=== PATIENT | male | born 2000 ===

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

== ENCOUNTER 2023-07-15 08:14 | Emergency (ER) | payer OTHER, SELFPAY ==
[2023-07-15 08:33] VITALS: BP 142/89; PULSE 77; RESP 16; TEMP 37.1; O2SAT 100; BMI 45.1
--- NOTE | 2023-07-15 09:05 | ED.URI ---
HPI - URI/Sore Throat General Chief Complaint: Upper Respiratory Symptoms Stated Complaint: Cough Chest Discomfort Time Seen by Provider: 07/15/23 09:04 Source: patient and educational interpreter Mode of arrival: ambulatory Limitations: language barrier History of Present Illness HPI Narrative: Patient is a 23-year-old English-speaking male presenting to emergency department with complaint of nonproductive cough, sore throat and fatigue for the past 2 days. Cough is nonproductive. He denies fevers. Reports bilateral rib pain during coughing episodes, denies any chest pain at rest. Denies ear pain. Has not taken any over the counter medications for his symptoms. MD elicited complaint: cough and sore throat Onset (ago): day(s) Consistency: intermittent Severity: moderate Able to tolerate fluids by mouth: Yes Treatments prior to arrival: none Related Data Home Medications Medication Instructions Recorded Confirmed No Known Home Meds 03/13/22 09/23/22 Allergies Allergy/AdvReac Type Severity Reaction Status Date / Time No Known Allergies Allergy Verified 09/23/22 16:00 Review of Systems Review of Systems: As per HPI. Yes all other systems are reviewed and are negative Constitutional: Constitutional: Reports as per HPI PMFSH Past Medical History Medical History Elevated alkaline phosphatase level Mild asthma Morbid obesity Physical exam Surgical History No pertinent past surgical history Family History Family History Mother Diabetes Arthritis Hypertension Rheumatoid arthritis Father No problems noted. Maternal Grandfather Cancer Social History Social History Housing: Apartment Alcohol intake: never Patient Tobacco Use Status: Never used Tobacco e-Cigarette/Vaping Use: Never Used Second Hand Smoke Exposure: No Advance Directives: No service: No Current occupational status: unemployed Current occupational exposures/hazards: No Cognitive needs: No Hearing needs: No Vision needs: No Physical Exam Vital Signs: Vital Signs: Last Vital Signs Temp 98.7 F 07/15/23 08:33 Pulse 77 07/15/23 08:33 Resp 16 07/15/23 08:33 BP 142/89 H 07/15/23 08:33 Pulse Ox 100 07/15/23 08:33 O2 Del Method Room Air 07/15/23 08:33 BMI result Body Mass Index 45.1 Vital signs have been reviewed and appear to be correct. Blood pressure elevated. Heart rate normal. Respiratory rate normal. Temperature normal. Oxygen saturation normal. Const: General: cooperative, healthy appearing and no acute distress Orientation/consciousness: oriented to person, oriented to place, oriented to time and patient oriented x3 Limitations: no limitations HEENT: Head: Yes normocephalic and Yes atraumatic Ears: external ears normal, TM's normal bilaterally and EAC's normal General nose exam: Normal external nose present and Normal nasal mucous membranes and turbinates present Face and sinus: Yes face symmetric Mouth: oropharynx normal and moist mucous membranes Throat: Yes uvula midline and Yes posterior oropharynx abnormal (mild erythema, no edema, no exudate) Eyes: Pupils: Equal, round and reactive pupils present Neck: Neck: Yes normal visual inspection and Yes supple Lymphatic: no lymphadenopathy noted Resp: Effort & Inspection: normal respiratory effort and able to speak in complete sentences Auscultation: clear to auscultation bilaterally, no rhonchi and no wheezes Cardio: Rate: regular rate Rhythm: regular rhythm Heart sounds: S1 normal heart sound present and S2 normal heart sound present GI: Palpation (GI): Soft to palpation and nontender Auscultation: normoactive bowel sounds : General: Yes no CVA tenderness Back/Spine/Pelvis: Back: no CVA tenderness Skin: General skin exam: elasticity normal and turgor normal Neuro: General: oriented to person, oriented to place, oriented to time, patient oriented x3, moves all extremities, no focal motor deficits and CN's II-XI intact bilaterally Cranial nerves: Yes Equal, round and reactive pupils present Cognition (Neuro): normal cognition Extrem: General: Yes full ROM, Yes no pedal edema and Yes no calf tenderness Psych: Mental Status: mental status grossly normal Affect: normal affect Thought process: Normal thought process present Medical Decision Making Medical Decision Making MDM Narrative: Patient is a 23-year-old English-speaking male presenting to emergency department with complaint of nonproductive cough, sore throat and fatigue for the past 2 days. On exam patient is awake, A+Ox3, VS WNL, afebrile, normal neurological exam without focal deficits, physical exam findings as above. Given reported symptoms and physical exam findings, initial differential includes viral illness, covid, flu, rsv, strep pharyngitis. Do not suspect bronchitis, pnuemonia, SLOT KEY PERSON or RPA. Swab positive for Covid, flu/rsv/strep all negative. Patient updated on results and all questions answered with educational interpreter. He was offered treatment with Paxlovid which he declined. Patient advised to ensure adequate fluid intake, adequate rest, alternate Tylenol and ibuprofen, isolate at home. Instructed patient to follow-up with primary care provider. Return precautions discussed at bedside. Patient verbalized understanding of and agreement with plan. Differential Diagnosis Differential Diagnoses: The differential diagnosis associated with the presentation includes As per [facility]. Lab Data [facility] Lab Attestation statement: I reviewed the patient's lab results. As per [facility]. Labs: Lab Results 07/15/23 07/15/23 Range/Units 08:46 09:25 Influenza Type A (PCR) NEGATIVE (Negative) Influenza Type B (PCR) NEGATIVE (Negative) RSV RNA Qual (PCR) NEGATIVE (Negative) SARS-CoV-2 RNA (RT-PCR) POSITIVE A (Negative) S. pyogenes GrpA LYN Negative (Negative) External Record Review External record reviewed: Inpatient record, Office record and Outpatient record Prescription Management I considered prescription management with: Antiviral Discharge Plan Discharge Clinical Impression: COVID-19 Patient Disposition: Home, Self-Care Instructions: COVID-19 (Coronavirus Disease 2019) (ED) Additional Instructions: Usted fue evaluado hoy en el departamento de emergencias por dolor de garganta y tos. Polo prueba de COVID result? positiva. Deber? continuar aislado en casa brigitte otros 4 d?as. Debe continuar usando la mascarilla brigitte 5 d?as despu?s de eso. Le ofrecieron un tratamiento con Paxlovid, terrell usted lo rechaz?. Si cambia de opini?n dentro de las pr?ximas 48 horas, comun?quese con polo proveedor de atenci?n primaria para analizar dang tratamiento. Regrese al departamento de emergencias si la dificultad para respirar empeora, dolor en el pecho, fiebre que no mejora con Tylenol o ibuprofeno, v?mitos persistentes o cualquier otro s?ntoma preocupante. Debe realizar un seguimiento con polo proveedor de atenci?n primaria. Prescriptions: No Action No Known Home Meds Stand Alone Forms: Work/School Release Print Language: English
--- NOTE | 2023-07-15 09:29 | PC.NURSE ---
nasal and throat swabs obtained
[2023-07-15 09:39] LABS: Influenza A PCR NEGATIVE (Negative); Influenza B PCR NEGATIVE (Negative); Resp Syncy Virus RNA Qual PCR NEGATIVE (Negative); SARS COV2 PCR INHOUSE POSITIVE (Negative)
[2023-07-15 09:52] LABS: IDNOW Serial# 08D9AD1C; Strep A Nucleic Acid Negative (Negative)
== END 2023-07-15 10:05 | disposition home or self-care (01) ==
PROVIDERS: Registered Nurse Emergency; Emergency Provider Student in an Organized Health Care Education/Training Program; PCP Internal Medicine
DX: U07.1 COVID-19 (principal); R07.89 Other chest pain; R07.81 Pleurodynia; R05.9 Cough, unspecified; J02.9 Acute pharyngitis, unspecified
CPT/HCPCS: 0241U; 87651; 99282; 99283

== ENCOUNTER 2024-04-27 13:20 | Emergency (ER) | payer OTHER, SELFPAY ==
[2024-04-27 13:29] VITALS: BP 143/72; PULSE 74; RESP 16; TEMP 36.7; O2SAT 98; BMI 41.3
[2024-04-27 14:42] LABS: Influenza A PCR NEGATIVE (Negative); Influenza B PCR NEGATIVE (Negative); Resp Syncy Virus RNA Qual PCR NEGATIVE (Negative); SARS COV2 PCR INHOUSE NEGATIVE (Negative)
--- NOTE | 2024-04-27 15:10 | ED_ITS ---
HPI - General Adult General Chief complaint: Upper Respiratory Symptoms Stated complaint: Sore throat, body aches Time Seen by Provider: 04/27/24 15:10 Source: patient, RN notes reviewed and old records reviewed Mode of arrival: ambulatory Limitations: no limitations History of Present Illness ED Provider: Orlando BENOIT narrative: 23-year-old male presents for evaluation of a sore throat. His pain started yesterday. He denies any sick contacts. He was able to swallow but has painful swallowing. Denies any fevers or chills. He has a mild cough it marquise 6 Related Data Previous Rx's ?Medication ?Instructions ?Recorded amoxicillin 875 mg-potassium 1 tab PO Q12H #14 tabs 04/27/24 clavulanate 125 mg tablet Allergies Allergy/AdvReac Type Severity Reaction Status Date / Time No Known Allergies Allergy Verified 04/27/24 13:31 Review of Systems Constitutional: Constitutional: Reports body ache(s), Denies chills, Denies fever(s) and Denies headache(s) ENT: Denies headache(s), Reports sore throat and Denies throat swelling Cardiovascular: Cardiovascular: Denies chest pain and Denies dyspnea Respiratory: Respiratory: Reports cough and Denies dyspnea Gastrointestinal: Gastrointestinal: Denies abdominal pain, Denies nausea and Denies vomiting Musculoskeletal: Musculoskeletal: Denies back pain Integumentary/Breasts: Skin/Breast: Denies rash Neurologic: Denies headache(s) Allergic/Immunologic: Allergic/Immunologic: Denies throat swelling PMFSH Past Medical History Medical History Elevated alkaline phosphatase level Mild asthma Morbid obesity Physical exam Surgical History No pertinent past surgical history Family History Family History Mother Diabetes Arthritis Hypertension Rheumatoid arthritis Father No problems noted. Maternal Grandfather Cancer Social History Social History Housing: Apartment Alcohol intake: never Patient Tobacco Use Status: Never used Tobacco e-Cigarette/Vaping Use: Never Used Second Hand Smoke Exposure: No Advance Directives: No Do you have a plan to hurt others: No Plan service: No Current occupational status: unemployed Current occupational exposures/hazards: No Cognitive needs: No Hearing needs: No Vision needs: No Physical Exam ED Vital Signs: Vital Signs - 24 hr 04/27/24 13:29 04/27/24 15:13 Temperature 98.1 F 98.1 F Pulse Rate 74 74 Respiratory Rate 16 16 Blood Pressure 143/72 H 143/72 H Pulse Oximetry 98 98 Oxygen Delivery Method Room Air Room Air BMI result Body Mass Index 41.3 Const General: healthy appearing, comfortable, no acute distress, alert and awake Nutritional Appearance: well nourished Orientation/consciousness: patient oriented x3 HENMT Other: Erythematous oropharynx with tonsillar hypertrophy. No clear exudates Head: Yes normocephalic and Yes atraumatic Eyes Eyelids: Yes eyelids normal Conjunctivae: conjunctivae normal Sclerae: sclerae normal Corneas: corneas normal Pupils: Equal, round and reactive pupils present EOM: EOMs intact bilaterally Neck Neck: Yes full ROM Resp Effort & Inspection: normal respiratory effort, able to speak in complete sentences, no audible wheezes and not labored Auscultation: clear to auscultation bilaterally Cardio Rate: regular rate Rhythm: regular rhythm Skin General skin exam: elasticity normal Neuro General: patient oriented x3 Cranial nerves: Yes Equal, round and reactive pupils present and Yes Bilaterally intact EOM present Cognition (Neuro): normal cognition Extrem Other: Moving all extremities well without any obvious deformities Medical Decision Making Medical Decision Making MDM Narrative: Patient presents with a sore throat. He has clinical evidence of pharyngitis. In triage she had a viral swab ordered but no strep throat swab. Since the patient's viral swabs were negative, I offered to treat the patient clinically for strep pharyngitis given the tonsillar hypertrophy and negative viral swabs. I did offer the patient strep testing as well but he declined that and preferred to take the empiric treatment. We will discharge the patient with Augmentin Differential Diagnosis Differential Diagnoses: The differential diagnosis associated with the presentation includes Strep pharyngitis Upper respiratory infection Pharyngitis COVID-19 Influenza Lab Data Labs: Lab Results 04/27/24 Range/Units 13:45 Influenza Type A (PCR) NEGATIVE (Negative) Influenza Type B (PCR) NEGATIVE (Negative) RSV RNA Qual (PCR) NEGATIVE (Negative) SARS-CoV-2 RNA (RT-PCR) NEGATIVE (Negative) Tests considered The following testing was considered but not selected: Rapid strep test Discharge Plan Discharge Clinical Impression: Pharyngitis Patient Disposition: Home, Self-Care Instructions: Pharyngitis (ED) Additional Instructions: You tested negative for COVID-19, influenza, RSV. Your symptoms are likely related to strep pharyngitis. Take Augmentin twice daily for 1 week. Use ibuprofen/Tylenol for pain Prescriptions: New amoxicillin-pot clavulanate 875-125 mg tablet 1 tab PO Q12H Qty: 14 0RF Stand Alone Forms: Work/School Release Interventions: ED Discharge Assessment Last Done: 04/27/24 15:13 Discharge Date/Time: 04/27/24 15:16 Print Language: Italian
[2024-04-27 15:13] VITALS: BP 143/72; PULSE 74; RESP 16; TEMP 36.7; O2SAT 98
== END 2024-04-27 15:16 | disposition home or self-care (01) ==
PROVIDERS: Emergency Provider Emergency Medicine Emergency Medical Services
DX: J02.9 Acute pharyngitis, unspecified (principal); M79.10 Myalgia, unspecified site; Z03.818 Encounter for observation for suspected exposure to other biological agents ruled out
CPT/HCPCS: 0241U; 99282; 99283

== ENCOUNTER 2024-08-18 15:44 | Outpatient (AMB) | payer OTHER, SELFPAY ==
--- NOTE | 2024-08-18 15:48 | A.OFFPC_ITS ---
Vital Signs 08/18/24 15:49 Height 5 ft 10 in Weight 275 lb 4 oz BMI 39.5 BP 128/60 Blood Pressure Location Lt brachial Position Sitting Respiration 15 Pulse 80 Pulse Source Pulse Oximeter Temp 97.8 F Temp Source Temporal Artery Scan Pulse Oximetry (%) 99 Oxygen Delivery Method Room Air Intake Visit Reasons: Med. Review Intake Note: Patient presents for an overdue physical exam and reports ongoing constipation. Supervisor Boarding Required: No Accompanied by: Mother Allergies No Known Allergies Allergy (Verified 08/18/24 15:57) Medication List - Last Reviewed 08/18/24 by AVIS Jara Tobacco use date assessed: 08/18/24 Dental Screening Dental Screen Date: 08/18/24 Did you have a dental visit in the last 12 months?: No Did you have a dental problem in the last 6 months where you did not have access to dental care?: No Was dental information given to patient?: Patient has dentist HPI HPI Comments History of Present Illness Details The patient is a 24-year-old male presenting for his physical exam with constipation issues. He has been using Miralax about once a week for symptom relief, but constipation recurs in its absence. This suggests a long-standing condition of chronic constipation as no previous diagnostic evaluation such as a colonoscopy has been performed. Moreover, the patient also discussed significant weight loss, noting a reduction of 50-60 pounds over recent months, potentially related to a newly adopted gym routine. There is no detailed account of dietary intake or additional lifestyle impacts contributing to the weight change provided. Continuing family history is largely non-revelatory, with the patient having no significant familial conditions known to impact his current constipation complaints. Furthermore, social history reveals no tobacco use and limited alcohol consumption, suggesting no major lifestyle-related risk factors for gastrointestinal problems. - Review of tetanus immunization status; patient has not received a booster in the past 10 years. - Discussion regarding weight management and the significant weight loss as sociated with increased gym activity. - Plans to perform laboratory evaluation s to check functions including cholesterol, blood sugar, kidneys, liver, and hemoglobin due to recent weight changes. [facility] Medical History (Updated 08/18/24 @ 16:15 by Alexandria Christiansen MD) Physical exam Elevated alkaline phosphatase level Mild asthma Morbid obesity Surgical History No pertinent past surgical history Family History Mother Diabetes Arthritis Hypertension Rheumatoid arthritis Father No problems noted. Maternal Grandfather Cancer Social History (Updated 08/18/24 @ 16:03 by Alexandria Christiansen MD) Housing: Apartment Alcohol intake: current Alcohol intake frequency: holidays/special occasions only Alcohol type: beer Patient Tobacco Use Status: Never used Tobacco e-Cigarette/Vaping Use: Never Used Second Hand Smoke Exposure: No service: No Current occupational status: unemployed Current occupational exposures/hazards: No Cognitive needs: No Hearing needs: No Vision needs: No Questionnaire PHQ-9 Over the last 2 weeks, how often have you been bothered by any of the following problems? 1. Little interest or pleasure in doing things: not at all 2. Feeling down, depressed, or hopeless: not at all 3. Trouble falling or staying asleep, or sleeping too much: not at all 4. Feeling tired or having little energy: not at all 5. Poor appetite or overeating: not at all 6. Feeling bad about yourself - or that you are a failure or have let yourself or your family down: not at all 7. Trouble concentrating on things, such as reading the newspaper or watching television: not at all 8. Moving or speaking so slowly that other people could have noticed. Or the opposite - being so fidgety or restless that you have been moving around a lot more than usual: not at all 9. Thoughts that you would be better off or of hurting yourself in some way: not at all Total score: 0 Depression Screening Interpretation: Negative Depression Screening Done: Yes 98488 - PHQ-9 Billing: Yes Source: Developed by Drs. Sumanth Mathew, Megan Grove, Dimitry Gonzales and colleagues, with an educational romulo from [employer]. Thrive Questionnaire Date Thrive assessed: 08/18/24 I am a: Patient What is your living situation today?: I have a steady place to live Within the past 12 months, did the food you bought not last and you didn't have the money to get more?: Never true Within the past 12 months, did you worry whether your food would run out before you got money to buy more?: Never true Do you have trouble paying for medicines?: No Do you have trouble getting transportation to medical appointments?: No Do you have trouble paying your heating and electricity bill?: No Do you have trouble taking care of your child, family member or friend?: No Do you have trouble with day-to-day activities such as bathing, preparing meals, shopping, managing finances, etc.?: No Are you currently unemployed and looking for a job?: No Are you interested in more education?: No Currently or been in a relationship where the following occur: No concerns reported THRIVE Score: 0 AUDIT C Alcohol Use Questionnaire (AUDIT-C) 1. How often do you have a drink containing alcohol?: Monthly or less 2. How many drinks containing alcohol do you have on a typical day when you are drinking?: 1 or 2 3. How often do you have six or more drinks on one occasion?: Never Total Score: 1 Score Reviewed/Action Taken: No MARCIE-7 AMB Questionnaire MARCIE-7 Date MARCIE - 7 assessed: 08/18/24 Feeling nervous, anxious, or on edge: 0 = Not at all Not being able to stop or control worryin = Not at all Worrying too much about different things: 0 = Not at all Trouble relaxin = Not at all Being so restless that it is hard to sit still: 0 = Not at all Becoming easily annoyed or irritable: 0 = Not at all Feeling afraid as if something awful might happen: 0 = Not at all Total MARCIE-7 score (0-4 normal; 5-9 mild; 10-14 moderate; 15-21 severe): 0 Source: Developed by Drs. Sumanth Mathew, Megan Grove, Dimitry Gonzales and colleagues, with an educational romulo from [employer]. MARCIE-7 Assessment Billing MARCIE-7 Assessment Tool: MARCIE-7 Assessment 65356 Review of Systems Const All systems reviewed & are unremarkable except as noted in HPI and below Card Denies chest pain at rest, Denies chest pain with activity, Denies edema, Denies irregular heart rhythm, Denies claudication, Denies dyspnea, Denies dyspnea on exertion, Denies orthopnea, Denies paroxysmal nocturnal dyspnea and Denies slow heart rate Resp Denies cough, Denies dyspnea and Denies dyspnea on exertion GI Denies abdominal pain, Denies change in bowel habits, Denies excessive flatus, Denies nausea and Denies vomiting Neuro Denies behavioral changes and Denies lack of coordination Psych Denies behavioral changes Physical exam (Primary Care) Vital Signs: Last Vital Signs Temp 97.8 F 08/18/24 15:49 Pulse 80 08/18/24 15:49 Resp 15 08/18/24 15:49 BP 128/60 08/18/24 15:49 Pulse Ox 99 08/18/24 15:49 Oxygen Delivery Method Room Air 08/18/24 15:49 BMI result Body Mass Index 39.5 Tobacco/Smoking Status: Tobacco use Status Tobacco use date assessed 08/18/24 08/18/24 15:59 Patient Tobacco Use Status Never used Tobacco 08/18/24 16:03 e-Cigarette/Vaping Use Never Used 08/18/24 16:03 PHQ-9: PHQ-9 Score PHQ-9: Total score 0 08/18/24 16:00 Depression Screening Interpretation: Negative Thrive Assessment: Date of Thrive Assessment Date Thrive assessed 08/18/24 08/18/24 15:56 Currently or been in a relationship where the following occur: No concerns reported HENMT Head: Yes normal to inspection, Yes normocephalic and Yes atraumatic Ears: external ears normal Eyes General: appearance normal, both eyes and all related structures Eyelids: Yes eyelids normal Conjunctivae: conjunctivae normal Neck Neck: Yes normal visual inspection and Yes supple Resp Effort & Inspection: normal respiratory effort Auscultation: clear to auscultation bilaterally Cardio Jugular venous distension: no JVD Rate: regular rate Rhythm: regular rhythm Heart sounds: S1 normal heart sound present and S2 normal heart sound present GI Inspection: Yes normal to inspection Palpation (GI): Soft to palpation and nontender Auscultation: normal bowel sounds Skin General skin exam: no rashes or lesions noted Neuro General: no focal motor deficits Extrem General: Yes full ROM Psych Appearance: grossly normal Coding Level of Care Code Est Pt Level 3 (72464) Est Pt Prev Care 18-39y(16766) Diagnoses Physical exam Z00.00 Chronic idiopathic constipation K59.04 Morbid obesity E66.01 CPT Codes Vision Screening - Vision Screenin - Vision Screening ([id number]) Additional Codes MARCIE-7 Assessment Billing - MARCIE-7 Assessment Tool: MARCIE-7 Assessment 74865 ([id number]) PHQ-9 - 24293 - PHQ-9 Billing: Yes ([id number]) Time Spent (min) 33 Assessment & Plan Assessment & Plan (1) Physical exam: Code(s): Z00.00 - Encounter for general adult medical examination without abnormal findings Category: Medical (2) Chronic idiopathic constipation: Code(s): K59.04 - Chronic idiopathic constipation Category: Medical (3) Morbid obesity: Code(s): E66.01 - Morbid (severe) obesity due to excess calories Category: Medical Plan The plan includes maintaining the current regimen for constipation with Miralax and following up with a Gastroenterology consultation for further evaluation. I will order comprehensive lab investigations, focusing on thyroid function and a complete blood profile, to explore possible underlying causes of the chronic constipation and recent significant weight loss. This approach aims to uncover systemic causes of his symptoms, obtaining more diagnostic clarity and informing future management strategies. Patient was informed and verbally consented to the use of an ambient scribe for clinic note documentation during this visit. I discussed with the patient the chronic nature of his constipation and detailed plans to enhance diagnostic understanding through specialist consultation and laboratory evaluations. I emphasized the importance of regular follow-up and monitoring him for any new symptoms or changes in his health status. Patients were informed about potential findings that might be revealed by the lab tests or a Gastroenterology evaluation. We reviewed the low risk of complications from the planned laboratory tests and reinforced the necessity of exploring further diagnostic steps to ascertain any potentially serious underlying conditions. Orders: Orders Comprehensive [place]. Panel Fast Today Z00.00 - Encounter for general adult medi [place] examination without abnormal findings Thyroid Stimulating Hormone Today R79.89 - Other specified abnormal findings of blood chemistry Lipid Panel Today E78.5 - Hyperlipidemia, unspecified, Z00.00 - Encounter for general adult medical examination without abnormal findings Complete Blood Count Auto Diff Today D64.9 - Anemia, unspecified IRON PROFILE Today D64.9 - Anemia, unspecified Referrals Ophthalmology Referral H53.8 - Other visual disturbances Gastroenterology Referral K59.04 - Chronic idiopathic constipation Patient Instructions: - Continue using Miralax as needed for constipation, approximately once per week. - Schedule and attend gastroenterology consultation for further evaluation. - Go to the lab for the blood tests ordered, including checking for cholesterol, sugar, thyroid, kidney and liver function, and hemoglobin levels. - Report any changes in symptoms or health promptly. - Maintain current physical activity regimen and monitor any further changes in weight. Vision Screening Right Eye: 20/25 Left Eye: 20/25 Bilateral: 20/20 Overall Vision Screening Results: Pass [id number] - Vision Screening
[2024-08-18 15:49] VITALS: BP 128/60; PULSE 80; RESP 15; TEMP 36.6; O2SAT 99; BMI 39.5
== END 2024-08-18 16:13 | disposition home or self-care (01) ==
PROVIDERS: Visit Provider Internal Medicine
DX: Z00.00 Encounter for general adult medical examination without abnormal findings (principal); K59.04 Chronic idiopathic constipation; E66.01 Morbid (severe) obesity due to excess calories; Z68.39 Body mass index [BMI] 39.0-39.9, adult; Z01.00 Encounter for examination of eyes and vision without abnormal findings

== ENCOUNTER → 2024-08-18 15:44 | Outpatient (BNVA) | payer OTHER, SELFPAY | PROVIDERS: Visit Provider Internal Medicine | DX: Z00.00 Encounter for general adult medical examination without abnormal findings (principal); K59.04 Chronic idiopathic constipation; E66.01 Morbid (severe) obesity due to excess calories; R79.89 Other specified abnormal findings of blood chemistry; E78.5 Hyperlipidemia, unspecified; D64.9 Anemia, unspecified; H53.8 Other visual disturbances; Z68.39 Body mass index [BMI] 39.0-39.9, adult | CPT/HCPCS: 96127; 99212; 99395 ==

== ENCOUNTER 2024-09-06 08:17 | Outpatient (REF) | payer OTHER, SELFPAY ==
[2024-09-06 08:38] LABS: MANUAL DIFF FLAG NO
[2024-09-06 09:12] LABS: Basophils Percent Auto 0.5 % (0-2); Eosinophils Absolute Auto 0.2 X10*3/uL (0.0-0.4); Eosinophils Percent Auto 2.6 % (0-4); Hematocrit 45.9 % (42.0-52.0); Hemoglobin 14.8 g/dl (14.0-18.0); Imm Gran Abs Auto 0.01 X10*3/uL (0.00-0.03); Imm Gran Pct Auto 0.2 % (0.0-0.4); Lymphocytes Absolute Auto 2.2 X10*3/uL (1.2-4.9); Lymphocytes Percent Auto 37.9 % (20-40); Mean Corpuscular HGB Conc 32.2 g/dl (31.0-36.0); Mean Corpuscular Hemoglobin 26.2 pg (27.0-33.0); Mean Corpuscular Volume 81.4 fL (80.0-98.0); Mean Platelet Volume 9.4 fL (9.4-12.4); Monocytes Absolute Auto 0.5 X10*3/uL (0.1-1.2); Neutrophils Absolute Auto 2.9 x10*3/uL (2.0-8.3); Neutrophils Percent Auto 49.8 % (45-73); Platelet Count 305 X10*3/uL (160-400); Red Blood Count 5.64 X10*6/uL (4.60-5.80); White Blood Count 5.9 X10*3/uL (4.8-10.8)
[2024-09-06 09:54] LABS: Alanine Aminotransferase 28 U/L (0-40); Albumin Level 4.2 g/dL (3.5-5.0); Alkaline Phosphatase 106 U/L (39-117); Anion Gap 12 (12-20); Aspartate Amino Transferase 23 U/L (5-37); Bilirubin Total 0.4 mg/dL (0.0-1.0); Blood Urea Nitrogen 15 mg/dL (9-16); Calcium 9.2 mg/dL (8.4-10.2); Carbon Dioxide 25 mmol/L (22-29); Chloride 104 mmol/L (96-108); Cholesterol 144 mg/dL (<200); Estimated Glomerular Filt Rate > 60; Glucose Fasting 91 mg/dL (60-99); HDL Cholesterol 39 mg/dL (>40); Iron 48 mcg/dL (45-160); LDL Cholesterol Calculated 87 mg/dL (<100); Percent Iron Saturation 16 % (15-50); Potassium 4.1 mmol/L (3.3-5.1); Sodium 137 mmol/L (135-145); Total Iron Binding Capacity 305 mcg/dL (228-428); Total Protein 7.5 g/dL (6.5-8.0); Triglycerides 94 mg/dL (<150); Unsaturated Iron Binding 257 ug/dL
[2024-09-06 10:14] LABS: Thyroid Stimulating Hormone 0.99 uIU/mL (0.32-4.0)
== END 2024-09-06 08:18 | disposition home or self-care (01) ==
LOC: HO.LAB 08:17
PROVIDERS: PCP Internal Medicine; Visit Provider Internal Medicine
DX: Z00.00 Encounter for general adult medical examination without abnormal findings (principal); E78.5 Hyperlipidemia, unspecified; D64.9 Anemia, unspecified; R79.89 Other specified abnormal findings of blood chemistry
CPT/HCPCS: 36415; 80053; 80061; 83540; 84443; 85025

== ENCOUNTER 2024-10-08 15:30 | Outpatient (AMB) | payer OTHER, SELFPAY ==
--- NOTE | 2024-10-08 15:33 | A.OFFVIS_ITS ---
Vital Signs 10/08/24 15:38 Height 5 ft 10 in Weight 270 lb BMI 38.7 BP 126/56 L Blood Pressure Location Rt brachial Position Sitting Pulse 66 Pulse Source Pulse Oximeter Pulse Oximetry (%) 99 Oxygen Delivery Method Room Air Intake Visit Reasons: Constipation Intake Note: Patient new consult for Constipation. Patient cc: C.O. constipation, moderate amounts of BRB per rectum. Pt denies any additional sx or concerns at this time. FMHx CRC MGF noted. Batch And Furnace Manager Required: Yes Batch And Furnace Manager Services: Batch And Furnace Manager Present Batch And Furnace Manager Name: Farooq [id number] Information Interpreted: clinical only Accompanied by: Friend Allergies No Known Allergies Allergy (Verified 10/08/24 15:33) HPI HPI Constipation: Details: Patient is a liberian speaking 76-isex-bxb-male with PMH of obesity. Referred by PCP for further evaluation of chronic constipation. Patient is accompanied by brother. [place] has been experiencing constipation for years and persisted without significant change. His stools are type 3 on the [place] Stool Chart, but he reports lack of daily bowel movements. He experiences some relief with Miralax, taken daily. There is occasional bleeding associated with and without hemorrhoids, described as bright red blood during wiping. [place] has intentionally lost weight from 314 pounds in July of last year to 270 pounds today, following a diet and exercise regimen. Patient denies: fever/chills, n/v, appetite changes, pyrosis, unintentional wt loss or ab pain. Social History - Diet: Eats low-calorie foods such as eggs for breakfast and protein shake or salad and chicken in the afternoon. - Alcohol/Tobacco/Drug Use: Social alcohol use, no history of drug or tobacco use, including vaping. -family hx as below -denies personal hx of CA -denies significant cardiopulmonary history PFSH Medical History (Updated 10/08/24 @ 17:21 by Shelby Olea CNP) Bloody stools Physical exam Elevated alkaline phosphatase level Mild asthma Morbid obesity Surgical History No pertinent past surgical history Family History Mother Diabetes Arthritis Hypertension Rheumatoid arthritis Father No problems noted. Maternal Grandfather Colon cancer Social History Housing: Apartment Alcohol intake: current Alcohol intake frequency: holidays/special occasions only Alcohol type: beer Patient Tobacco Use Status: Never used Tobacco e-Cigarette/Vaping Use: Never Used Second Hand Smoke Exposure: No service: No Current occupational status: unemployed Current occupational exposures/hazards: No Cognitive needs: No Hearing needs: No Vision needs: No Review of Systems Const Reports as per HPI ENT Reports as per HPI Card Reports as per HPI Resp Reports as per HPI GI Reports as per HPI Reports as per HPI Physical Exam Vital Signs: Last Vital Signs Pulse 66 10/08/24 15:38 BP 126/56 L 10/08/24 15:38 Pulse Ox 99 10/08/24 15:38 Oxygen Delivery Method Room Air 10/08/24 15:38 BMI result Body Mass Index 38.7 Const General: healthy appearing and no acute distress Nutritional Appearance: obese Orientation/consciousness: patient oriented x3 HEENT Head: Yes normal to inspection, Yes normocephalic and Yes atraumatic Face and sinus: Yes normal facial exam Eyes General: appearance normal, both eyes and all related structures Neck Neck: Yes normal visual inspection Resp Effort & Inspection: normal respiratory effort, able to speak in complete sentences, no tracheal deviation and symmetric chest movement Auscultation: clear to auscultation bilaterally Cardio Jugular venous distension: no JVD Rate: regular rate Rhythm: regular rhythm Heart sounds: S1 normal heart sound present, S2 normal heart sound present, no gallops and no murmurs GI Inspection: Yes normal to inspection, No distended and Yes obesity Palpation (GI): Soft to palpation, not firm, nontender and No hepatosplenomegaly present Auscultation: normal bowel sounds Rectal Exam - Male: Yes visual inspection normal (Although limited by body habitus), Yes normal sphincter tone and No External hemorrhoid(s) present Neuro General: patient oriented x3 Gait exam (Neuro): Normal gait present Psych Appearance: grossly normal Mental Status: mental status grossly normal Speech and movement: Normal speech and movement present Affect: normal affect Attitude: cooperative Thought process: Normal thought process present Thought content: Normal thought content present Insight: Good insight present (Psych) Judgement: Good judgement present (Psych) Results Reviewed Results Reviewed: Laboratory Tests 09/06/24 08:37 WBC 5.9 RBC 5.64 Hgb 14.8 Hct 45.9 MCV 81.4 MCH 26.2 L MCHC 32.2 RDW 15.0 Plt Count 305 Sodium 137 Potassium 4.1 Chloride 104 Carbon Dioxide 25 Anion Gap 12 BUN 15 Creatinine 0.67 Estimated GFR > 60 Fasting Glucose 91 Calcium 9.2 Iron 48 TIBC 305 % Saturation 16 Unsat Iron Binding 257 Total Bilirubin 0.4 AST 23 ALT 28 Alkaline Phosphatase 106 Total Protein 7.5 Albumin 4.2 Triglycerides 94 Cholesterol 144 LDL Cholesterol, Calc 87 HDL Cholesterol 39 L TSH 0.99 Assessment & Plan Assessment & Plan (1) Chronic idiopathic constipation: Code(s): K59.04 - Chronic idiopathic constipation Category: Medical Plan: Chronic, infrequent BMs, partial response to Miralax, no alarm features, normal labs, no anemia, normal rectal exam Medications: - Continue Miralax daily - Add 2 laxative tablets qHS - Ointment for hemorrhoids PRN Reinforced lifestyle modifications to promote regularity: -higher fiber diet, examples provided -adequate hydration with water -150 minutes of moderate intensity exercise per week (2) Bloody stools: Code(s): K92.1 - [place] Category: Medical Plan: Occasional BRBPR with wiping, likely secondary to hemorrhoids; no evidence of active hemorrhoids on exam, no anemia, no other concerning features Additional Tests: if bleeding persists or worsens, will proceed with endoscopy (colonoscopy) Medications: Topical hemorrhoid ointment PRN Lifestyle Modifications: As above; avoid straining, maintain soft stools Plan Patient prefers follow-up after cruise, ~8 weeks from today (cruise November 01?November 16). Time: I spent a total of 45 minutes on the date of encounter which includes: Preparing to see the patient (reviewed previous documentation, test results and medical history) Performing a medically appropriate exam and/or evaluation Ordering medications, tests, and procedures Documenting clinical information in the health record Medications: New sennosides-docusate sodium 8.6-50 mg (Senna Plus) 2 tab-caps (2 x 8.6-50 mg) PO BEDTIME 180 caps 1RF hydrocortisone 1% Apply sparingly, up to twice daily as needed [address] BID PRN 28.4 grams 2RF hemorrhoids Coding Level of Care Code New Pt New Pt Level 5 (78108) Patient Type New Diagnoses Chronic idiopathic constipation K59.04 Bloody stools K92.1
[2024-10-08 15:38] VITALS: BP 126/56; PULSE 66; O2SAT 99; BMI 38.7
== END 2024-10-08 16:19 | disposition home or self-care (01) ==
LOC: HO.HGI 15:31
PROVIDERS: PCP Internal Medicine; Visit Provider Nurse Practitioner Family
DX: K59.04 Chronic idiopathic constipation (principal); K92.1 Melena
CPT/HCPCS: 99204

== ENCOUNTER → 2024-10-08 15:30 | Outpatient (BNVA) | payer OTHER, SELFPAY | PROVIDERS: PCP Internal Medicine; Visit Provider Nurse Practitioner Family | DX: K59.04 Chronic idiopathic constipation (principal); K92.1 Melena | CPT/HCPCS: 99202 ==

== ENCOUNTER 2025-02-24 14:18 | Outpatient (AMB) | payer OTHER, SELFPAY ==
--- NOTE | 2025-02-24 14:19 | A.OFFPC_ITS ---
Vital Signs 02/24/25 14:20 Height 5 ft 10 in Weight 269 lb 6 oz BMI 38.6 BP 122/68 Blood Pressure Location Lt brachial Position Sitting Pulse 61 Pulse Source Pulse Oximeter Pulse Oximetry (%) 97 Oxygen Delivery Method Room Air Intake Visit Reasons: Pain in left knee, issues walking Education Program Associate Required: No Accompanied by: Self / Same As Patient Allergies No Known Allergies Allergy (Verified 02/24/25 14:50) Medication List - Last Reconciled 02/24/25 by Alexandria Christiansen MD hydrocortisone 1% 1 appl RI BID PRN polyethylene glycol 3350 (Miralax) 17 grams PO DAILY 30 days sennosides-docusate sodium 8.6-50 mg (Senna Plus) 2 tab-caps (2 x 8.6-50 mg) PO BEDTIME Tobacco use date assessed: 02/24/25 Dental Screening Dental Screen Date: 02/24/25 Did you have a dental visit in the last 12 months?: No Did you have a dental problem in the last 6 months where you did not have access to dental care?: No Was dental information given to patient?: No HPI HPI Comments History of Present Illness Details The patient is a 24-year-old male presenting with knee instability. The issue has been ongoing for more than six months, with the knee deviating laterally when stepping on flat surfaces, leading to falls and transient pain. The pain resolves quickly, but difficulty bending the knee persists for days to weeks. Constipation stable with medications as needed. The patient has not had any imaging of the knees yet. He has attempted weight loss, believing it might alleviate the issue, but symptoms persist despite weight reduction. The patient does not smoke and consumes alcohol only on special occasions. [facility] Medical History (Updated 02/24/25 @ 15:01 by Alexandria Christiansen MD) Bloody stools Physical exam Elevated alkaline phosphatase level Mild asthma Morbid obesity Surgical History No pertinent past surgical history Family History Mother Diabetes Arthritis Hypertension Rheumatoid arthritis Father No problems noted. Maternal Grandfather Colon cancer Social History Housing: Apartment Alcohol intake: current Alcohol intake frequency: holidays/special occasions only Alcohol type: beer Patient Tobacco Use Status: Never used Tobacco e-Cigarette/Vaping Use: Never Used Second Hand Smoke Exposure: No service: No Current occupational status: unemployed Current occupational exposures/hazards: No Cognitive needs: No Hearing needs: No Vision needs: No Questionnaire Thrive Questionnaire Date Thrive assessed: 08/18/24 AUDIT C Alcohol Use Questionnaire (AUDIT-C) 1. How often do you have a drink containing alcohol?: Monthly or less 2. How many drinks containing alcohol do you have on a typical day when you are drinking?: 1 or 2 3. How often do you have six or more drinks on one occasion?: Never Total Score: 1 Score Reviewed/Action Taken: No MARCIE-7 AMB Questionnaire MARCIE-7 Date MARCIE - 7 assessed: 08/18/24 Source: Developed by Drs. Sumanth Mathew, Megan Grove, Dimitry Gonzales and colleagues, with an educational romulo from [employer]. Review of Systems Const All systems reviewed & are unremarkable except as noted in HPI and below Card Denies chest pain at rest, Denies chest pain with activity, Denies edema, Denies irregular heart rhythm, Denies claudication, Denies dyspnea, Denies dyspnea on exertion, Denies orthopnea, Denies paroxysmal nocturnal dyspnea and Denies slow heart rate Resp Denies cough, Denies dyspnea and Denies dyspnea on exertion Musc Denies abnormal gait, Denies atrophy, Denies deformity and Denies limited range of motion Skin/Breast Denies bleeding lesions, Denies changing lesions and Denies rash Neuro Denies abnormal gait and Denies lack of coordination Physical exam (Primary Care) Vital Signs: Last Vital Signs Pulse 61 02/24/25 14:20 BP 122/68 02/24/25 14:20 Pulse Ox 97 02/24/25 14:20 Oxygen Delivery Method Room Air 02/24/25 14:20 BMI result Body Mass Index 38.6 BMI Assessment/Plan discussion: High BMI High, discussed plan: lifestyle, weight reduction, dietary and physical activity Tobacco/Smoking Status: Tobacco use Status Tobacco use date assessed 02/24/25 02/24/25 14:28 Patient Tobacco Use Status Never used Tobacco 02/24/25 14:28 e-Cigarette/Vaping Use Never Used 02/24/25 14:28 Thrive Assessment: Date of Thrive Assessment Date Thrive assessed 08/18/24 02/24/25 14:28 Resp Effort & Inspection: normal respiratory effort Auscultation: clear to auscultation bilaterally Cardio Jugular venous distension: no JVD Rate: regular rate Rhythm: regular rhythm Heart sounds: S1 normal heart sound present and S2 normal heart sound present Extrem General: Yes full ROM Coding Level of Care Code Est Pt Level 3 (95362) Diagnoses Left knee pain M25.562 Right knee pain M25.561 Chronic idiopathic constipation K59.04 Time Spent (min) 19 Assessment & Plan Assessment & Plan (1) Left knee pain: Code(s): M25.562 - Pain in left knee Category: Medical (2) Right knee pain: Code(s): M25.561 - Pain in right knee Category: Medical (3) Chronic idiopathic constipation: Code(s): K59.04 - Chronic idiopathic constipation Category: Medical Plan Plan Patient was informed and verbally consented to the use of an ambient scribe for clinic note documentation during this visit. 1. Knee Instability The patient will undergo knee X-rays to assess the structural integrity of the joint. A referral to orthopedics has been made for further evaluation and management. Orders: Orders XR knee RT 2V Today M25.561 - Pain in right knee XR knee LT 2V Today M25.562 - Pain in left knee Referrals Orthopedics Referral M25.561 - Pain in right knee, M25.562 - Pain in left knee
[2025-02-24 14:20] VITALS: BP 122/68; PULSE 61; O2SAT 97; BMI 38.6
== END 2025-02-24 14:59 | disposition home or self-care (01) ==
LOC: HO.HMCH 14:19
PROVIDERS: PCP Internal Medicine; Visit Provider Internal Medicine
DX: M25.562 Pain in left knee (principal); M25.561 Pain in right knee; K59.04 Chronic idiopathic constipation

== ENCOUNTER → 2025-02-24 14:18 | Outpatient (BNVA) | payer OTHER, SELFPAY | PROVIDERS: PCP Internal Medicine; Visit Provider Internal Medicine | DX: M25.562 Pain in left knee (principal); M25.561 Pain in right knee; K59.04 Chronic idiopathic constipation; M23.50 Chronic instability of knee, unspecified knee | CPT/HCPCS: 99212 ==

== ENCOUNTER 2025-03-01 10:03 | Outpatient (REF) | payer OTHER, SELFPAY ==
--- NOTE | ~2025-03-01 | XR_ITS ---
XR KNEE GUILHERME 2V HISTORY: Left knee pain. COMPARISON: None. TECHNIQUE: AP view bilateral knees standing, and lateral views each knee. FINDINGS: RIGHT KNEE: No fracture, dislocation, or suspicious bone lesion. Joint spaces are normal in all 3 compartments. No evidence of joint effusion. Soft tissues appear normal. LEFT KNEE: No fracture, dislocation, or suspicious bone lesion. Joint spaces are normal in all 3 compartments. No evidence of joint effusion. Soft tissues appear normal. XR/XR Knee Guilherme 1or 2V IMPRESSION: 1. Normal bilateral knees. Electronically signed by: Joey Webb MD 03/01/2025 10:29 AM EDT
== END 2025-03-01 10:04 | disposition home or self-care (01) ==
LOC: HO.XRAY 10:03
PROVIDERS: PCP Internal Medicine; Visit Provider Internal Medicine
DX: M25.562 Pain in left knee (principal); M25.561 Pain in right knee
CPT/HCPCS: 73560

== ENCOUNTER → 2025-03-01 10:08 | Outpatient (BNV) | payer OTHER, SELFPAY | PROVIDERS: PCP Internal Medicine; Visit Provider Radiology Diagnostic Radiology | DX: M25.562 Pain in left knee (principal) | CPT/HCPCS: 73560 ==